=== PATIENT | female | born 2005 | race Caucasian/White ===

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

== ENCOUNTER 2024-01-04 19:01 | Emergency (ER) | payer OTHER, SELFPAY ==
[2024-01-04 19:14] VITALS: BP 115/79; BP 116/68; PULSE 107; PULSE 84; RESP 18; TEMP 36.6; O2SAT 97; O2SAT 99; BMI 28.1
--- NOTE | 2024-01-04 19:31 | ED.GENADULT ---
HPI - General Adult General Chief complaint: Psychiatric Symptoms Stated complaint: behavioral Time Seen by Provider: 01/04/24 19:20 Source: patient and EMS Mode of arrival: EMS Limitations: no limitations History of Present Illness ED Provider: Mounika Guerrier PA-C HPI narrative: Patient is a 18 year old assigned female at with, living in a detention, presenting to the emergency department today after a behavioral issue at her detention. Patient states that she was being threatened by staff of restraint for not performing hygiene tasks. Patient states that she does not have any thoughts of harming herself or others. Patient denies any dizziness, lightheadedness, abdominal pain, nausea, vomiting, fever, chills, blurry vision, double vision, loss of vision, chest pain, difficulty breathing, shortness of breath, back pain, night sweats, pain with urination, increased urinary frequency, increased urinary urgency, blood in her urine or stool, syncope or a near syncopal episode, recent trauma or falls, bowel incontinence, bladder incontinence, or any other complaints at this time. Relieving factors: none Exacerbating factors: none Associated symptoms: denies other symptoms Treatments prior to arrival: none Related Data Home Medications ?Medication ?Instructions ?Recorded ?Confirmed clonidine HCl 0.1 mg tablet 0.1 mg PO BIDWM 11/10/23 01/04/24 clozapine 25 mg tablet 50 mg PO BID 11/10/23 01/04/24 clozapine 50 mg tablet 75 mg PO DAILY 11/10/23 01/04/24 divalproex 125 mg capsule,delayed 125 mg PO QNOON 11/10/23 01/04/24 release sprinkle (Depakote Sprinkles) loratadine 10 mg tablet 10 mg PO DAILY 11/10/23 01/04/24 melatonin 3 mg tablet 3 mg PO BEDTIME 11/10/23 01/04/24 metformin 500 mg tablet 500 mg PO BID 11/10/23 01/04/24 prazosin 2 mg capsule 2 mg PO BEDTIME 11/10/23 01/04/24 sennosides 8.6 mg tablet (senna) 17.2 mg PO BEDTIME 11/10/23 01/04/24 Depakote Sprinkles 250 mg PO BID 01/04/24 01/04/24 lactase 3,000 unit tablet (Lactaid) 9,000 unit PO TIDWMEAL PRN Lactose 01/04/24 01/04/24 Intolerance polyethylene glycol 3350 17 17 g PO BEDTIME 01/04/24 01/04/24 gram/dose oral powder Allergies Allergy/AdvReac Type Severity Reaction Status Date / Time Seasonal Allergies Allergy Sneezing Verified 01/04/24 19:28 Review of Systems Constitutional: Constitutional: Reports no additional constitutional complaints, Denies chills, Denies fever(s) and Denies night sweats Eyes: Eyes: Reports no additional eye complaints, Denies blurry vision, Denies change in vision, Denies diplopia, Denies eye discharge, Denies loss of vision and Denies eye pain ENT: Denies dizziness Cardiovascular: Cardiovascular: Reports no additional cardiovascular complaints, Denies chest pain, Denies lightheadedness, Denies Loss of Consciousness and Denies dyspnea Respiratory: Respiratory: Reports no additional respiratory complaints and Denies dyspnea Gastrointestinal: Gastrointestinal: Reports no additional gastrointestinal complaints, Denies abdominal pain, Denies melena, Denies hematochezia, Denies change in bowel habits and Denies change in stool character Genitourinary: Genitourinary: Denies hematuria, Denies urinary frequency, Denies dysuria, Denies urinary incontinence, Denies urinary hesitancy and Denies urinary urgency Musculoskeletal: Musculoskeletal: Reports no additional musculoskeletal complaints, Denies numbness and Denies tingling Neurologic: Denies dizziness, Denies loss of vision, Denies numbness and Denies tingling Psychiatric: Psychiatric: Reports no additional psychiatric complaints Endocrine: Endocrine: Reports no additional endocrine complaints Hematologic/Lymphatic: Hematologic/Lymphatic: Reports no additional hematologic/lymphatic complaints Allergic/Immunologic: Allergic/Immunologic: Reports no additional allergic/immunologic complaints [facility] Past Medical History Attestation statement: The following information was validated with the patient. Source: old records reviewed and nursing notes reviewed Medical History Schizoaffective disorder PTSD (post-traumatic stress disorder) Social History Social History Patient Tobacco Use Status: Never used Tobacco Advance Directives: No Advance Directives Information Provided: No Do you have a plan to hurt others: No Plan Physical Exam ED Vital Signs: Vital Signs - 24 hr 01/04/24 19:14 Temperature 97.8 F Pulse Rate 84 Respiratory Rate 18 Blood Pressure 115/79 Pulse Oximetry 99 Oxygen Delivery Method Room Air BMI result Body Mass Index 28.1 Const General: cooperative, no acute distress, alert and awake Nutritional Appearance: well nourished Orientation/consciousness: patient oriented x3 Limitations: no limitations HENMT Head: Yes normal to inspection and Yes atraumatic Ears: hearing grossly normal bilaterally and external ears normal General nose exam: Normal external nose present, no nasal discharge noted and no epistaxis Face and sinus: Yes normal facial exam, No abrasion and No laceration Mouth: Normal oral and palatal mucosa present, no drooling and no muffled voice Eyes General: appearance normal, both eyes and all related structures Periorbital: periorbital findings normal Eyelids: Yes eyelids normal Conjunctivae: conjunctivae normal Pupils: Equal, round and reactive pupils present EOM: EOMs intact bilaterally Neck Neck: Yes normal visual inspection, Yes full ROM and Yes no lymphadenopathy Chest Chest palpation & inspection: normal inspection of the chest Resp Effort & Inspection: normal respiratory effort and able to speak in complete sentences GI Inspection: Yes normal to inspection Neuro General: patient oriented x3 and moves all extremities Cranial nerves: Yes Equal, round and reactive pupils present Cognition (Neuro): normal cognition Extrem General: Yes normal to inspection, Yes full ROM and Yes capillary refill normal Psych Appearance: grossly normal Mental Status: mental status grossly normal Affect: normal affect Attitude: cooperative Thought process: Normal thought process present Thought content: Normal thought content present Insight: Good insight present (Psych) Medications Administered Generic Name Dose Route Start Last Admin Trade Name Reggie PRN Reason Stop Dose Admin Clonidine HCl 0.1 mg 01/05/24 08:00 01/04/24 22:22 Clonidine Hcl 0.1 Mg Tablet PO 0.1 mg BIDWM [facility] Administration Protocol Divalproex Sodium 125 mg 01/04/24 21:30 01/04/24 22:21 Divalproex Sodium Sprinkles 125 Mg PO Not Given DAILY@1200 [facility] Lactase 1 tab 01/04/24 21:18 01/04/24 22:22 Lactase Tablet PO Not Given TIDWM [facility] Medical Decision Making Medical Decision Making MDM Narrative: Patient is a 18 year old assigned female at with a history of shizoaffective disorder presenting to the emergency department today after a behavioral issue at her detention. Patient's physical exam was unremarkable. I explained my physical exam findings to the patient. I answered all questions asked by the patient. Patient will remain in physician observation until tomorrow morning (01/05/2024) then she will be discharged back to her detention. Differential Diagnosis Differential Diagnoses: The differential diagnosis associated with the presentation includes Behavioral outburst Admission/Observation Consideration of admission/observation: Escalation of care including admission/observation considered Patient would have been admitted to the hospital had her clinical presentation warranted hospital admission. Independent Historian Clinical information obtained from an independent historian. History obtained from or confirmed by: EMS (EMS provided additional history and confirmed the history provided by the patient.) and Other (penitentiary staff provided additional history. ) Discharge Plan Discharge Clinical Impression: Behavioral problem Patient Disposition: Still a Patient Prescriptions: No Action metformin 500 mg tablet 500 mg PO BID sennosides [senna] 8.6 mg tablet 17.2 mg PO BEDTIME clonidine HCl 0.1 mg tablet 0.1 mg PO BIDWM melatonin 3 mg tablet 3 mg PO BEDTIME clozapine 25 mg tablet 50 mg PO BID Rx Instructions: @1200, 2000 divalproex [Depakote Sprinkles] 125 mg capsule, delayed rel sprinkle 125 mg PO QNOON loratadine 10 mg tablet 10 mg PO DAILY prazosin 2 mg capsule 2 mg PO BEDTIME clozapine 50 mg tablet 75 mg PO DAILY Depakote Sprinkles 250 mg PO BID polyethylene glycol 3350 17 gram/dose powder 17 g PO BEDTIME lactase [Lactaid] 3,000 unit Tablet 9,000 unit PO TIDWMEAL PRN (Reason: Lactose Intolerance) Print Language: Algerian
--- NOTE | 2024-01-04 20:56 | PC.NURSE ---
mom carlos croninnard cslled asked mother to call back d/t t/w needing to talk to staff and clarify details regarding patient presentation.
[2024-01-04] MEDS: cloNIDine HCL 0.1 MG TABLET PO (22:22)
--- NOTE | 2024-01-04 23:10 | HE.PHANOTE ---
[facility] Ann [phone]. She said pt takes 75 mg at 8am, 50 mg at noon and at night. She cannot confirm the last dose because patient was with her mom (Yoly [phone]) since friday01/02/24.
[2024-01-04] MEDS: Prazosin HCL 1 MG CAPSULE 2 MG PO (23:33)
[2024-01-04] MEDS: polyethylene glycoL 3350 17 GM POWD.PACK PO (23:33)
[2024-01-04] MEDS: Divalproex Sodium Sprinkles 125 MG CAP.DR.SPR 250 MG PO (23:34)
[2024-01-04] MEDS: Melatonin 3 MG TABLET PO (23:34)
[2024-01-04 23:41] VITALS: BP 109/70; PULSE 90; RESP 17; TEMP 36.4; O2SAT 99
--- NOTE | 2024-01-05 00:04 | PC.NURSE ---
late entry, staff from [facility] seated with patient, most medications given tardy awating pharmacy approval, clozaril was held d/t lack of labwork.
--- NOTE | 2024-01-05 05:26 | PC.NURSE ---
Pt sleeping at the bedside. No apparent distress noted. Breaths are even regular and unlabored with equal chest rises. Monitoring is ongoing.
[2024-01-05 08:12] VITALS: BP 107/68; PULSE 81; RESP 18; TEMP 36.1; O2SAT 98
[2024-01-05 08:42] VITALS: BP 107/68
[2024-01-05] MEDS: metFORMIN HCl 500 MG TABLET PO (08:42)
[2024-01-05] MEDS: Divalproex Sodium Sprinkles 125 MG CAP.DR.SPR 250 MG PO (08:42)
[2024-01-05] MEDS: cloNIDine HCL 0.1 MG TABLET PO (08:42)
[2024-01-05] MEDS: Lactase TABLET 1 TAB PO (08:43)
[2024-01-05] MEDS: Loratadine 10 MG TABLET PO (08:43)
[2024-01-05] MEDS: cloZAPine 25 MG TABLET 75 MG PO (09:14)
[2024-01-05] MEDS: cloZAPine 25 MG TABLET 50 MG PO (09:15)
[2024-01-05 09:41] VITALS: BP 107/68; PULSE 81; RESP 18; TEMP 36.1; O2SAT 98
--- NOTE | 2024-01-05 09:42 | PC.NURSE ---
pt denies si/hi, caqlm and cooperative, pt and [facility] staff agreeable with return to [facility]
== END 2024-01-05 09:42 | disposition home or self-care (01) ==
PROVIDERS: Emergency Provider Emergency Medicine Emergency Medical Services
DX: F91.9 Conduct disorder, unspecified (principal); F20.9 Schizophrenia, unspecified; Z79.899 Other long term (current) drug therapy
CPT/HCPCS: 99284

== ENCOUNTER 2024-01-20 08:21 | Emergency (ER) | payer OTHER, SELFPAY ==
[2024-01-20] VITALS (8 sets, daily range): BP systolic 117–130; BP diastolic 57–80; PULSE 90–115; RESP 17–19; TEMP 36.4–37.1; O2SAT 95–97; BMI 33.6
--- NOTE | 2024-01-20 08:36 | ECG_ITS ---
Test Reason : syncope Blood Pressure : / mmHG Vent. Rate : 109 BPM Atrial Rate : 109 BPM P-R Int : 118 ms QRS Dur : 080 ms QT Int : 322 ms P-R-T Axes : 070 105 007 degrees QTc Int : 433 ms Sinus tachycardia Rightward axis T wave abnormality, consider inferior ischemia Abnormal ECG When compared with ECG of 21-NOV-2023 12:25, T wave inversion now evident in Inferior leads Nonspecific T wave abnormality now evident in Anterolateral leads Referred By: Generic ED Physician Electronically Signed By:ERLINDA KENNEDY
--- NOTE | 2024-01-20 09:01 | ED_ITS ---
HPI - General Adult General Chief complaint: Syncope Stated complaint: Abd pain, sore throat, headache Time Seen by Provider: 01/20/24 08:49 Source: patient and RN notes reviewed Mode of arrival: ambulatory Limitations: no limitations History of Present Illness ED Provider: Cristin Galvan PA-C HPI narrative: This is a 18 year old female who presents to the emergency department with complaints of sore throat. She also endorses that she has diarrhea. Patient also states that she becomes dizzy when she stands. She states that she has not been drinking as may fluids as she has had a sore throat. She has been taking Motrin which provides her with some relief. She is on control, she denies any chest pain, shortness breath, abdominal pain, nausea, vomiting or diarrhea. Last menstrual period was last week. No sick contacts. No other complaints or concerns at this time. MD complaint: Sore throat Onset (ago): day(s) Radiation: non-radiation Relieving factors: none Exacerbating factors: none Associated symptoms: denies other symptoms Treatments prior to arrival: none Related Data Home Medications ?Medication ?Instructions ?Recorded ?Confirmed clonidine HCl 0.1 mg tablet 0.1 mg PO BIDWM 11/10/23 01/04/24 clozapine 25 mg tablet 50 mg PO BID 11/10/23 01/04/24 clozapine 50 mg tablet 75 mg PO DAILY 11/10/23 01/04/24 divalproex 125 mg capsule,delayed 125 mg PO QNOON 11/10/23 01/04/24 release sprinkle (Depakote Sprinkles) loratadine 10 mg tablet 10 mg PO DAILY 11/10/23 01/04/24 melatonin 3 mg tablet 3 mg PO BEDTIME 11/10/23 01/04/24 metformin 500 mg tablet 500 mg PO BID 11/10/23 01/04/24 prazosin 2 mg capsule 2 mg PO BEDTIME 11/10/23 01/04/24 sennosides 8.6 mg tablet (senna) 17.2 mg PO BEDTIME 11/10/23 01/04/24 Depakote Sprinkles 250 mg PO BID 01/04/24 01/04/24 lactase 3,000 unit tablet (Lactaid) 9,000 unit PO TIDWMEAL PRN Lactose 08/04/24 08/04/24 Intolerance polyethylene glycol 3350 17 17 g PO BEDTIME 01/04/24 01/04/24 gram/dose oral powder Allergies Allergy/AdvReac Type Severity Reaction Status Date / Time lactose Allergy Gastrointestinal Verified 01/20/24 08:31 Upset Seasonal Allergies Allergy Sneezing Verified 01/20/24 08:31 Review of Systems 2 Review of Systems: Yes all other systems are reviewed and are negative Constitutional: Constitutional: Reports as per [facility] Past Medical History Medical History Schizoaffective disorder PTSD (post-traumatic stress disorder) Social History Social History Patient Tobacco Use Status: Never used Tobacco Smoked in Last 30 Days: No Use of substances other than those prescribed or required for medical reasons: No Advance Directives: No Advance Directives Information Provided: Yes Patient : No Physical Exam ED Vital Signs: Vital Signs - 24 hr 01/20/24 08:29 01/20/24 08:55 01/20/24 10:12 Temperature 98.3 F 98.8 F Pulse Rate 115 H 99 90 Respiratory Rate 18 18 17 Blood Pressure 130/67 117/76 118/69 Pulse Oximetry 95 97 95 Oxygen Delivery Method Room Air Room Air Room Air 01/20/24 11:47 01/20/24 11:48 01/20/24 11:49 Temperature Pulse Rate 90 97 104 H Respiratory Rate Blood Pressure 120/57 L 125/80 127/71 Pulse Oximetry Oxygen Delivery Method 01/20/24 12:08 01/20/24 14:18 Temperature 97.6 F 97.6 F Pulse Rate 90 90 Respiratory Rate 19 19 Blood Pressure 127/71 127/71 Pulse Oximetry 96 96 Oxygen Delivery Method Room Air Room Air BMI result Body Mass Index 33.6 Const General: cooperative, comfortable and no acute distress Orientation/consciousness: patient oriented x3 Limitations: no limitations HENMT Other: Oropharynx is widely patent, no tonsillar hypertrophy or exudates. Uvula is midline Head: Yes normal to inspection, Yes normocephalic and Yes atraumatic Ears: hearing grossly normal bilaterally and TM's normal bilaterally General nose exam: Normal external nose present Face and sinus: Yes normal facial exam Mouth: Normal oral and palatal mucosa present, oropharynx normal and moist mucous membranes Throat: Yes posterior oropharynx normal Eyes General: appearance normal, both eyes and all related structures Eyelids: Yes eyelids normal Conjunctivae: conjunctivae normal Sclerae: sclerae normal Pupils: Equal, round and reactive pupils present EOM: EOMs intact bilaterally Neck Neck: Yes normal visual inspection, Yes full ROM and Yes no lymphadenopathy Lymphatic: no lymphadenopathy noted Chest Chest palpation & inspection: normal inspection of the chest Resp Effort & Inspection: normal respiratory effort and able to speak in complete sentences Auscultation: clear to auscultation bilaterally, no crackles, no rales, no rhonchi and no wheezes Cardio Rate: regular rate Rhythm: regular rhythm Heart sounds: S1 normal heart sound present and S2 normal heart sound present GI Inspection: Yes normal to inspection Skin General skin exam: no rashes or lesions noted Trauma: no lacerations or abrasions Wounds: no wounds Neuro General: patient oriented x3 and moves all extremities Cranial nerves: Yes Equal, round and reactive pupils present Extrem General: Yes normal to inspection Right upper extremity: normal to inspection Left upper extremity: normal to inspection Right lower extremity: normal to inspection Left lower extremity: normal to inspection Course Reevaluation(s) Reevaluation #1: Patient given 2 L of IV fluids, she is feeling much better, orthostatics were negative. She has eating and drinking without difficulty. Patient eager for discharge. Patient stable for discharge with strict return precautions. manager assisted living requesting clozapine level as she gets this performed every 2 weeks. Advised that she will not have this result back and time. She has had 2- troponins. EKG normal sinus rhythm. Patient stable for discharge Medications Administered Discontinued Medications Generic Name Dose Route Start Last Admin Trade Name Arturq PRN Reason Stop Dose Admin Sodium Chloride 1,000 mls @ 999 mls/hr 01/20/24 09:01 01/20/24 10:35 Ns IV 01/20/24 10:01 Infused .Q1H1M ONE Infusion Sodium Chloride 1,000 mls @ 999 mls/hr 01/20/24 10:30 01/20/24 12:32 Ns IV 01/20/24 11:30 Infused .Q1H1M ONE Infusion Medical Decision Making Medical Decision Making MDM Narrative: This is a 18-year-old female who presents emergency department with complaints of sore throat, headaches, and diarrhea. On arrival, pulse 115. She is speaking in full sentences, under no acute distress, lungs are clear to auscultation bilaterally. Differential diagnoses include electrolyte derangement, strep pharyngitis, URI, COVID, flu, mono. Plan: Labs, IV fluids, viral swabs Differential Diagnosis Differential Diagnoses: The differential diagnosis associated with the presentation includes See above Admission/Observation Consideration of admission/observation: Escalation of care including admission/observation considered Escalation of care including admission/observation considered however given workup today not warranted at this time. Lab Data MDM Lab Attestation statement: I reviewed the patient's lab results. Slight leukopenia at 3.5, chemistry within normal limits, no elevation in troponins x2, slight elevation in lipase, she is not . Urine appears to be contaminated 01/20/24 09:25 01/20/24 09:25 Labs: Lab Results 01/20/24 01/20/24 01/20/24 Range/Units 09:19 09:25 10:40 WBC 3.5 L (4.8-10.8) X10*3/uL RBC 4.31 (4.20-5.50) X10*6/uL Hgb 12.4 (12.0-16.0) g/dl Hct 36.5 L (37.0-47.0) % MCV 84.7 (80.0-98.0) fL MCH 28.8 (27.0-33.0) pg MCHC 34.0 (31.0-35.0) g/dl RDW 12.6 (11.0-16.0) % Plt Count 155 L D (160-400) X10*3/uL MPV 11.4 (9.4-12.3) fL Immature Gran % (Auto) 0.3 (0.0-0.4) % Neut % (Auto) 53.8 (45-73) % Lymph % (Auto) 38.2 (20-40) % Russell % (Auto) 7.4 (2-11) % Eos % (Auto) 0.0 (0-4) % Baso % (Auto) 0.3 (0-2) % Lymph # (Auto) 1.3 (1.2-4.9) X10*3/uL Russell # (Auto) 0.3 (0.1-1.2) X10*3/uL Eos # (Auto) 0.0 (0.0-0.4) X10*3/uL Baso # (Auto) 0.0 (0.0-0.2) X10*3/uL Abs Immat Gran (auto) 0.01 (0.00-0.03) X10*3/uL Absolute Neuts (auto) 1.9 L (2.0-8.3) x10*3/uL Absolute Nucleated RBC 0.000 (0.0-0.012) X10*3/uL Nucleated RBC % (auto) 0.0 (0.0-0.2) /100WBC Smear Tech's Comments VERIFIED D-Dimer High Sensitivty < 150 NG/ML Sodium 142 (135-145) mmol/L Potassium 3.8 (3.3-5.1) mmol/L Chloride 107 (96-108) mmol/L Carbon Dioxide 21 L (22-29) mmol/L Anion Gap 18 (12-20) BUN 12 (9-16) mg/dL Creatinine 0.74 (0.5-1.4) mg/dL Estim Creat Clear Calc 131.9 Estimated GFR > 60 Random Glucose 69 (60-115) mg/dL Calcium 8.7 D (8.4-10.2) mg/dL Magnesium 1.8 (1.6-2.6) mg/dL Total Bilirubin 0.3 (0.0-1.0) mg/dL Direct Bilirubin 0.2 (0.0-0.5) mg/dL AST 18 (5-31) U/L ALT 9 (0-31) U/L Alkaline Phosphatase 50 (39-117) U/L Troponin I High Sens < 2.7 (<3.5-17.0) ng/L Total Protein 7.0 (6.5-8.0) g/dL Albumin 3.9 (3.5-5.0) g/dL Lipase 90 H (8-78) U/L Beta HCG, Quant < 2 mIU/mL Urine Color Dark Yellow Urine Appearance Cloudy Urine pH 5.5 (5.0-9.0) Ur Specific [place] >= 1.030 H (1.005-1.025) Urine Protein Trace (Neg-Trace) mg/dL Urine Glucose (UA) Negative (Negative) mg/dL Urine Ketones >=160 (Negative) mg/dL Urine Blood Negative (Negative) Urine Nitrite Negative (Negative) Ur Leukocyte Esterase Small (1+) H (Negative) Urine RBC 0-2 (0-2) /HPF Urine WBC 11-20 H (0-5) /HPF Ur Squamous Epith Cells 11-20 (0-2) /HPF Urine Bacteria 2+ (None Seen) Hyaline Casts 0-2 (0-2) /LPF Monoscreen Negative (Negative) Influenza Type A (PCR) NEGATIVE (Negative) Influenza Type B (PCR) NEGATIVE (Negative) RSV RNA Qual (PCR) NEGATIVE (Negative) SARS-CoV-2 RNA (RT-PCR) NEGATIVE (Negative) S. pyogenes GrpA MARIALUISA Negative (Negative) 01/20/24 Range/Units 13:05 WBC (4.8-10.8) X10*3/uL RBC (4.20-5.50) X10*6/uL Hgb (12.0-16.0) g/dl Hct (37.0-47.0) % MCV (80.0-98.0) fL MCH (27.0-33.0) pg MCHC (31.0-35.0) g/dl RDW (11.0-16.0) % Plt Count (160-400) X10*3/uL MPV (9.4-12.3) fL Immature Gran % (Auto) (0.0-0.4) % Neut % (Auto) (45-73) % Lymph % (Auto) (20-40) % Russell % (Auto) (2-11) % Eos % (Auto) (0-4) % Baso % (Auto) (0-2) % Lymph # (Auto) (1.2-4.9) X10*3/uL Russell # (Auto) (0.1-1.2) X10*3/uL Eos # (Auto) (0.0-0.4) X10*3/uL Baso # (Auto) (0.0-0.2) X10*3/uL Abs Immat Gran (auto) (0.00-0.03) X10*3/uL Absolute Neuts (auto) (2.0-8.3) x10*3/uL Absolute Nucleated RBC (0.0-0.012) X10*3/uL Nucleated RBC % (auto) (0.0-0.2) /100WBC Smear Tech's Comments D-Dimer High Sensitivty NG/ML Sodium (135-145) mmol/L Potassium (3.3-5.1) mmol/L Chloride (96-108) mmol/L Carbon Dioxide (22-29) mmol/L Anion Gap (12-20) BUN (9-16) mg/dL Creatinine (0.5-1.4) mg/dL Estim Creat Clear Calc Estimated GFR Random Glucose (60-115) mg/dL Calcium (8.4-10.2) mg/dL Magnesium (1.6-2.6) mg/dL Total Bilirubin (0.0-1.0) mg/dL Direct Bilirubin (0.0-0.5) mg/dL AST (5-31) U/L ALT (0-31) U/L Alkaline Phosphatase (39-117) U/L Troponin I High Sens < 2.7 (<3.5-17.0) ng/L Total Protein (6.5-8.0) g/dL Albumin (3.5-5.0) g/dL Lipase (8-78) U/L Beta HCG, Quant mIU/mL Urine Color Urine Appearance Urine pH (5.0-9.0) Ur Specific [place] (1.005-1.025) Urine Protein (Neg-Trace) mg/dL Urine Glucose (UA) (Negative) mg/dL Urine Ketones (Negative) mg/dL Urine Blood (Negative) Urine Nitrite (Negative) Ur Leukocyte Esterase (Negative) Urine RBC (0-2) /HPF Urine WBC (0-5) /HPF Ur Squamous Epith Cells (0-2) /HPF Urine Bacteria (None Seen) Hyaline Casts (0-2) /LPF Monoscreen (Negative) Influenza Type A (PCR) (Negative) Influenza Type B (PCR) (Negative) RSV RNA Qual (PCR) (Negative) SARS-CoV-2 RNA (RT-PCR) (Negative) S. pyogenes GrpA MARIALUISA (Negative) Discharge Plan Discharge Clinical Impression: URI (upper respiratory infection), Pharyngitis Patient Disposition: Home, Self-Care Instructions: Pharyngitis (ED), Upper Respiratory Infection (ED) Additional Instructions: You were seen in the emergency department due to a sore throat and headaches. You likely have a virus which is causing him to have your symptoms. Your Clozaril level was sent out, we will not have this back today. Your workup today was reassuring. Please drink plenty of fluids and get plenty of rest. If any new or worsening symptoms occur including but not limited to chest pain, shortness of breath, dizziness, please return for re-evaluation. Prescriptions: No Action metformin 500 mg tablet 500 mg PO BID sennosides [senna] 8.6 mg tablet 17.2 mg PO BEDTIME clonidine HCl 0.1 mg tablet 0.1 mg PO BIDWM melatonin 3 mg tablet 3 mg PO BEDTIME clozapine 25 mg tablet 50 mg PO BID Rx Instructions: @1200, 2000 divalproex [Depakote Sprinkles] 125 mg capsule, delayed rel sprinkle 125 mg PO QNOON loratadine 10 mg tablet 10 mg PO DAILY prazosin 2 mg capsule 2 mg PO BEDTIME clozapine 50 mg tablet 75 mg PO DAILY Depakote Sprinkles 250 mg PO BID polyethylene glycol 3350 17 gram/dose powder 17 g PO BEDTIME lactase [Lactaid] 3,000 unit Tablet 9,000 unit PO TIDWMEAL PRN (Reason: Lactose Intolerance) Interventions: ED Discharge Assessment Last Done: 01/20/24 14:18 Discharge Date/Time: 01/20/24 14:19 Print Language: Serbian
[2024-01-20] MEDS: 0.9 % Sodium Chloride 1,000 ML 999 ML IV ×2 (09:26→10:39)
[2024-01-20 09:33] LABS: Basophils Percent Auto 0.3 % (0-2); Hematocrit 36.5 % (37.0-47.0); Hemoglobin 12.4 g/dl (12.0-16.0); Imm Gran Abs Auto 0.01 X10*3/uL (0.00-0.03); Imm Gran Pct Auto 0.3 % (0.0-0.4); Lymphocytes Absolute Auto 1.3 X10*3/uL (1.2-4.9); Lymphocytes Percent Auto 38.2 % (20-40); MANUAL DIFF FLAG SCAN; Mean Corpuscular Hemoglobin 28.8 pg (27.0-33.0); Mean Corpuscular Volume 84.7 fL (80.0-98.0); Mean Platelet Volume 11.4 fL (9.4-12.3); Monocytes Absolute Auto 0.3 X10*3/uL (0.1-1.2); Monocytes Percent Auto 7.4 % (2-11); Neutrophils Absolute Auto 1.9 x10*3/uL (2.0-8.3); Neutrophils Percent Auto 53.8 % (45-73); Platelet Count 155 X10*3/uL (160-400); Red Blood Count 4.31 X10*6/uL (4.20-5.50); Red Cell Distribution Width 12.6 % (11.0-16.0); SCAN SMEAR FLAG 1; White Blood Count 3.5 X10*3/uL (4.8-10.8)
--- NOTE | 2024-01-20 09:40 | PC.NURSE ---
Pt presents to ED from [facility], reports S/S of sore throat, cough, SOB on exertion, general malaise and near syncope X2 yesterday. Reports symptoms have been ongoing since Friday, worsening. Alert and oriented, breathing even and unlabored at rest, skin pale and dry. VSS. NSR on bedside cardiac monitor technician.
[2024-01-20 09:42] LABS: D Dimer High Sensitivity < 150 NG/ML
[2024-01-20 09:49] LABS: IDNOW Serial# 08D9AD1C; Strep A Nucleic Acid Negative (Negative)
[2024-01-20 09:52] LABS: SLIDE REVIEW VERIFIED
[2024-01-20 09:57] LABS: Alanine Aminotransferase 9 U/L (0-31); Albumin Level 3.9 g/dL (3.5-5.0); Alkaline Phosphatase 50 U/L (39-117); Anion Gap 18 (12-20); Aspartate Amino Transferase 18 U/L (5-31); Bilirubin Direct 0.2 mg/dL (0.0-0.5); Bilirubin Total 0.3 mg/dL (0.0-1.0); Blood Urea Nitrogen 12 mg/dL (9-16); Calcium 8.7 mg/dL (8.4-10.2); Carbon Dioxide 21 mmol/L (22-29); Chloride 107 mmol/L (96-108); Creatinine Clr Calc Pharmacy 131.9; Estimated Glomerular Filt Rate > 60; Glucose Random 69 mg/dL (60-115); Lipase 90 U/L (8-78); Magnesium 1.8 mg/dL (1.6-2.6); Potassium 3.8 mmol/L (3.3-5.1); Sodium 142 mmol/L (135-145)
[2024-01-20 10:09] LABS: HCG Quantitative < 2 mIU/mL
[2024-01-20 10:10] LABS: Troponin-I High Sensitivity < 2.7 ng/L (<3.5-17.0)
[2024-01-20 10:30] LABS: Influenza A PCR NEGATIVE (Negative); Influenza B PCR NEGATIVE (Negative); Resp Syncy Virus RNA Qual PCR NEGATIVE (Negative); SARS COV2 PCR INHOUSE NEGATIVE (Negative)
[2024-01-20 10:44] LABS: Monotest Negative (Negative)
[2024-01-20 10:45] LABS: Appearance Urine Cloudy; Color Urine Dark Yellow; Glucose Urine UA Negative (Negative); Leukocyte Esterase Urine Small (1+) (Negative); Nitrite Urine Negative (Negative); PH 5.5 (5.0-9.0); Specific Gravity - Urine >= 1.030 (1.005-1.025); UMIC TRIGGER UACC YES; Urine Blood Negative (Negative); Urine Ketones >=160 mg/dL (Negative); Urine Protein Trace mg/dL (Neg-Trace)
[2024-01-20 10:48] LABS: Bacteria Urine 2+ (None Seen); Hyaline Casts Urine 0-2 /LPF (0-2); RBC Urine 0-2 /HPF (0-2); UACC Culture Trigger YES
--- NOTE | 2024-01-20 11:12 | MHC.EDTECH ---
This tech responded to call edwar. Patient asking if she could have ice cream. Per Cristin mcdaniel for icecream. Provided patient with two chocolate ice creams per her request. All current needs met.
--- NOTE | 2024-01-20 12:48 | ECG_ITS ---
Test Reason : REPEAT Blood Pressure : / mmHG Vent. Rate : 099 BPM Atrial Rate : 099 BPM P-R Int : 134 ms QRS Dur : 078 ms QT Int : 342 ms P-R-T Axes : 052 093 042 degrees QTc Int : 438 ms Normal sinus rhythm with sinus arrhythmia Rightward axis Borderline ECG When compared with ECG of 20-JAN-2024 08:34, Nonspecific T wave abnormality has replaced inverted T waves in Inferior leads Nonspecific T wave abnormality no longer evident in Lateral leads Referred By: Cristin Galvan Electronically Signed By:ERLINDA KENNEDY
[2024-01-20 13:39] LABS: Troponin-I High Sensitivity < 2.7 ng/L (<3.5-17.0)
[2024-01-25 09:39] LABS: Clozapine (Clozaril) 410 mcg/L; Norclozapine 139 mcg/L (25-400)
== END 2024-01-20 14:19 | disposition home or self-care (01) ==
PROVIDERS: Physician Assistant Medical; Emergency Provider Emergency Medicine
DX: J06.9 Acute upper respiratory infection, unspecified (principal); J02.9 Acute pharyngitis, unspecified; R11.2 Nausea with vomiting, unspecified; R42 Dizziness and giddiness; I49.8 Other specified cardiac arrhythmias; R00.0 Tachycardia, unspecified; Z03.818 Encounter for observation for suspected exposure to other biological agents ruled out; Z79.899 Other long term (current) drug therapy
CPT/HCPCS: 0241U; 36415; 80048; 80076; 80159; 81001; 83690; 83735; 84484; 84702; 85025; 85379; 86308; 87086; 87651; 93005; 96360; 96361; 99285

== ENCOUNTER 2024-02-20 15:01 | Outpatient (REF) | payer OTHER, SELFPAY ==
[2024-02-20 15:15] LABS: MANUAL DIFF FLAG NO
[2024-02-20 15:40] LABS: Basophils Percent Auto 0.3 % (0-2); Eosinophils Percent Auto 0.1 % (0-4); Hematocrit 34.2 % (37.0-47.0); Hemoglobin 11.4 g/dl (12.0-16.0); Imm Gran Abs Auto 0.02 X10*3/uL (0.00-0.03); Imm Gran Pct Auto 0.3 % (0.0-0.4); Lymphocytes Absolute Auto 3.5 X10*3/uL (1.2-4.9); Lymphocytes Percent Auto 47.3 % (20-40); Mean Corpuscular HGB Conc 33.3 g/dl (31.0-35.0); Mean Platelet Volume 10.8 fL (9.4-12.3); Monocytes Absolute Auto 0.4 X10*3/uL (0.1-1.2); Monocytes Percent Auto 5.9 % (2-11); Neutrophils Absolute Auto 3.4 x10*3/uL (2.0-8.3); Neutrophils Percent Auto 46.1 % (45-73); Platelet Count 293 X10*3/uL (160-400); Red Blood Count 4.07 X10*6/uL (4.20-5.50); Red Cell Distribution Width 13.2 % (11.0-16.0); White Blood Count 7.3 X10*3/uL (4.8-10.8)
[2024-02-20 16:05] LABS: Valproate 40.7 mcg/mL (50.0-100.0)
[2024-02-25 03:13] LABS: Clozapine (Clozaril) 435 mcg/L; Norclozapine 153 mcg/L (25-400)
== END 2024-02-20 15:02 | disposition home or self-care (01) ==
LOC: HO.LABR 15:01
PROVIDERS: Visit Provider Psychiatry & Neurology Psychiatry
DX: Z79.899 Other long term (current) drug therapy (principal)
CPT/HCPCS: 36415; 80159; 80164; 85025

== ENCOUNTER 2024-03-25 11:50 | Outpatient (REF) | payer OTHER, SELFPAY ==
[2024-03-25 12:12] LABS: MANUAL DIFF FLAG NO
[2024-03-25 13:01] LABS: Basophils Percent Auto 0.3 % (0-2); Hematocrit 33.4 % (37.0-47.0); Hemoglobin 11.3 g/dl (12.0-16.0); Imm Gran Abs Auto 0.03 X10*3/uL (0.00-0.03); Imm Gran Pct Auto 0.3 % (0.0-0.4); Lymphocytes Absolute Auto 3.2 X10*3/uL (1.2-4.9); Lymphocytes Percent Auto 36.5 % (20-40); Mean Corpuscular HGB Conc 33.8 g/dl (31.0-35.0); Mean Corpuscular Hemoglobin 28.4 pg (27.0-33.0); Mean Corpuscular Volume 83.9 fL (80.0-98.0); Mean Platelet Volume 11.2 fL (9.4-12.3); Monocytes Absolute Auto 0.7 X10*3/uL (0.1-1.2); Monocytes Percent Auto 7.6 % (2-11); Neutrophils Absolute Auto 4.9 x10*3/uL (2.0-8.3); Neutrophils Percent Auto 55.3 % (45-73); Platelet Count 310 X10*3/uL (160-400); Red Blood Count 3.98 X10*6/uL (4.20-5.50); Red Cell Distribution Width 13.4 % (11.0-16.0); White Blood Count 8.8 X10*3/uL (4.8-10.8)
[2024-03-25 13:26] LABS: Valproate 36.2 mcg/mL (50.0-100.0)
[2024-03-29 06:03] LABS: Clozapine (Clozaril) 456 mcg/L; Norclozapine 151 mcg/L (25-400)
== END 2024-03-25 11:51 | disposition home or self-care (01) ==
LOC: HO.LAB 11:50
PROVIDERS: Visit Provider Psychiatry & Neurology Psychiatry
DX: Z79.899 Other long term (current) drug therapy (principal)
CPT/HCPCS: 36415; 80159; 80164; 85025

== ENCOUNTER 2024-04-22 10:24 | Outpatient (REF) | payer OTHER, SELFPAY ==
[2024-04-22 10:37] LABS: MANUAL DIFF FLAG NO
[2024-04-22 10:41] LABS: Basophils Percent Auto 0.3 % (0-2); Eosinophils Percent Auto 0.1 % (0-4); Hematocrit 33.2 % (37.0-47.0); Hemoglobin 11.4 g/dl (12.0-16.0); Imm Gran Abs Auto 0.03 X10*3/uL (0.00-0.03); Imm Gran Pct Auto 0.3 % (0.0-0.4); Lymphocytes Absolute Auto 2.9 X10*3/uL (1.2-4.9); Lymphocytes Percent Auto 32.2 % (20-40); Mean Corpuscular HGB Conc 34.3 g/dl (31.0-35.0); Mean Corpuscular Hemoglobin 28.3 pg (27.0-33.0); Mean Corpuscular Volume 82.4 fL (80.0-98.0); Mean Platelet Volume 10.6 fL (9.4-12.3); Monocytes Absolute Auto 0.7 X10*3/uL (0.1-1.2); Monocytes Percent Auto 7.4 % (2-11); Neutrophils Absolute Auto 5.4 x10*3/uL (2.0-8.3); Neutrophils Percent Auto 59.7 % (45-73); Platelet Count 281 X10*3/uL (160-400); Red Blood Count 4.03 X10*6/uL (4.20-5.50); Red Cell Distribution Width 13.3 % (11.0-16.0); White Blood Count 9.1 X10*3/uL (4.8-10.8)
[2024-04-22 11:34] LABS: Valproate 47.4 mcg/mL (50.0-100.0)
[2024-04-27 04:23] LABS: Clozapine (Clozaril) 481 mcg/L; Norclozapine 124 mcg/L (25-400)
== END 2024-04-22 10:25 | disposition home or self-care (01) ==
LOC: HO.LABR 10:24
PROVIDERS: PCP Psychiatry & Neurology Psychiatry; Visit Provider Psychiatry & Neurology Psychiatry
DX: Z51.81 Encounter for therapeutic drug level monitoring (principal); Z79.899 Other long term (current) drug therapy
CPT/HCPCS: 36415; 80159; 80164; 85025

== ENCOUNTER 2024-05-20 08:37 | Outpatient (REF) | payer OTHER, SELFPAY ==
[2024-05-20 08:53] LABS: MANUAL DIFF FLAG NO
[2024-05-20 09:51] LABS: Basophils Percent Auto 0.3 % (0-2); Hematocrit 35.6 % (37.0-47.0); Hemoglobin 11.9 g/dl (12.0-16.0); Imm Gran Abs Auto 0.02 X10*3/uL (0.00-0.03); Imm Gran Pct Auto 0.3 % (0.0-0.4); Lymphocytes Absolute Auto 2.6 X10*3/uL (1.2-4.9); Lymphocytes Percent Auto 39.6 % (20-40); Mean Corpuscular HGB Conc 33.4 g/dl (31.0-35.0); Mean Corpuscular Hemoglobin 27.9 pg (27.0-33.0); Mean Corpuscular Volume 83.6 fL (80.0-98.0); Mean Platelet Volume 11.1 fL (9.4-12.3); Monocytes Absolute Auto 0.5 X10*3/uL (0.1-1.2); Monocytes Percent Auto 7.9 % (2-11); Neutrophils Absolute Auto 3.5 x10*3/uL (2.0-8.3); Neutrophils Percent Auto 51.9 % (45-73); Platelet Count 298 X10*3/uL (160-400); Red Blood Count 4.26 X10*6/uL (4.20-5.50); Red Cell Distribution Width 13.2 % (11.0-16.0); White Blood Count 6.7 X10*3/uL (4.8-10.8)
== END 2024-05-20 08:38 | disposition home or self-care (01) ==
LOC: HO.LABR 08:37
PROVIDERS: Visit Provider Psychiatry & Neurology Psychiatry
DX: Z79.899 Other long term (current) drug therapy (principal)
CPT/HCPCS: 36415; 85025

== ENCOUNTER 2024-06-20 17:26 | Emergency (ER) | payer OTHER, SELFPAY ==
[2024-06-20 17:37] VITALS: BP 134/80; PULSE 102
[2024-06-20 18:06] VITALS: BP 126/76; PULSE 100; RESP 16; TEMP 36.7; O2SAT 98
--- NOTE | 2024-06-20 18:45 | PC.NURSE ---
brown[employer] program coordinator Jessica called - [phone] states she can return to intermediate at any point.
--- NOTE | 2024-06-20 18:59 | ED_ITS ---
HPI - Psych General Chief Complaint: Psychiatric Symptoms Stated Complaint: SI, HI Time Seen by Provider: 06/20/24 18:03 Source: patient Mode of arrival: ambulatory History of Present Illness ED Provider: HPI Narrative: Patient's history of depression came from group on as she had an argument with the staff felt overwhelmed started scratching her left forearm felt suicidal wanted her own space on arrival patient denied any SI feels relaxed Related Data Home Medications ?Medication ?Instructions ?Recorded ?Confirmed clonidine HCl 0.1 mg tablet 0.1 mg PO BIDWM 11/10/23 06/20/24 clozapine 25 mg tablet 50 mg PO DAILY 11/10/23 06/20/24 clozapine 50 mg tablet 25 mg PO DAILY@1700 11/10/23 06/20/24 melatonin 3 mg tablet 3 mg PO BEDTIME 11/10/23 06/20/24 metformin 500 mg tablet 500 mg PO BID 11/10/23 06/20/24 prazosin 2 mg capsule 2 mg PO BEDTIME 11/10/23 06/20/24 sennosides 8.6 mg tablet (senna) 8.6 mg PO BEDTIME 11/10/23 06/20/24 Depakote Sprinkles 250 mg PO BID 01/04/24 06/20/24 lactase 3,000 unit tablet (Lactaid) 9,000 unit PO TIDWMEAL PRN Lactose 01/04/24 06/20/24 Intolerance clozapine 100 mg tablet 100 mg PO BEDTIME 06/20/24 06/20/24 Allergies Allergy/AdvReac Type Severity Reaction Status Date / Time lactose Allergy Gastrointestinal Verified 06/20/24 18:11 Upset Seasonal Allergies Allergy Sneezing Verified 06/20/24 18:11 Review of Systems Review of Systems: Yes all other systems are reviewed and are negative PMF Past Medical History Medical History Schizoaffective disorder PTSD (post-traumatic stress disorder) Social History Social History Patient Tobacco Use Status: Never used Tobacco Advance Directives: No Advance Directives Information Provided: No Do you have a plan to hurt others: No Plan Physical Exam Vital Signs: Vital Signs: Last Vital Signs Temp 98.6 F 06/20/24 22:39 Pulse 79 06/20/24 22:39 Resp 18 06/20/24 22:39 BP 136/76 06/20/24 22:39 Pulse Ox 98 06/20/24 22:39 O2 Del Method Room Air 06/20/24 22:39 BMI result Body Mass Index 30.0 Appearance: Alert. Oriented X3. No acute distress. Eyes: No pallor or icterus ENT: Pharynx normal. Oral Mucosa moist Neck: Normal inspection. Neck supple. CVS: Normal heart rate and rhythm. Pulses normal. Respiratory: No respiratory distress. Equal air entry bilateral, no wheezing/rales/rhonchi Abdomen: Soft and nontender. Bowel sounds are present, no mass palpable, no CVA tenderness Skin: Skin warm and dry. Normal skin color. Normal skin turgor. Extremities: No lower extremity edema. No calf tenderness psych; stable mood denied any SI at this time Neuro: Oriented X 3. No motor deficit. No sensory deficit.No cerebellar signs , cranial nerves II-XII intact Medical Decision Making Medical Decision Making MDM Narrative: Patient is seen by care team t will discharge patient back to [facility] patient is stable Lab Data Labs: Lab Results 06/20/24 Range/Units 19:26 Urine Color Yellow Urine Appearance Clear Urine pH 6.5 (5.0-9.0) Ur Specific [place] >= 1.030 H (1.005-1.025) Urine Protein Negative (Neg-Trace) mg/dL Urine Glucose (UA) Negative (Negative) mg/dL Urine Ketones Trace (Negative) mg/dL Urine Blood Negative (Negative) Urine Nitrite Negative (Negative) Ur Leukocyte Esterase Small (1+) H (Negative) Urine RBC 0-2 (0-2) /HPF Urine WBC 11-20 H (0-5) /HPF Ur Squamous Epith Cells 6-10 (0-2) /HPF Urine Bacteria 1+ (None Seen) Hyaline Casts 0-2 (0-2) /LPF Urine Test NEGATIVE (NEGATIVE) Urine Opiates Screen Not Detected (Not Detect) Ur Buprenorphine Scrn Not Detected (Not Detect) ng/mL Ur Oxycodone Screen Not Detected (Not Detect) ng/mL Urine Methadone Screen Not Detected (Not Detect) ng/mL Urine Fentanyl Screen Not Detected (Not Detect) Ur Barbiturates Screen Not Detected (Not Detect) Ur Phencyclidine Scrn Not Detected (Not Detect) Ur Amphetamines Screen Not Detected (Not Detect) U Benzodiazepines Scrn Not Detected (Not Detect) Urine Cocaine Screen Not Detected (Not Detect) U Marijuana (THC) Screen Not Detected (Not Detect) Discharge Plan Discharge Clinical Impression: PTSD (post-traumatic stress disorder) Patient Disposition: Home, Self-Care Instructions: Post Traumatic Stress Disorder (ED) Additional Instructions: Continue to take your medication follow up with your therapist Prescriptions: No Action metformin 500 mg tablet 500 mg PO BID sennosides [senna] 8.6 mg tablet 8.6 mg PO BEDTIME clonidine HCl 0.1 mg tablet 0.1 mg PO BIDWM melatonin 3 mg tablet 3 mg PO BEDTIME clozapine 25 mg tablet 50 mg PO DAILY prazosin 2 mg capsule 2 mg PO BEDTIME clozapine 50 mg tablet 25 mg PO DAILY@1700 clozapine 100 mg tablet 100 mg PO BEDTIME Depakote Sprinkles 250 mg PO BID lactase [Lactaid] 3,000 unit Tablet 9,000 unit PO TIDWMEAL PRN (Reason: Lactose Intolerance) Interventions: [place]-Suicide Risk Severity Scale Last Done: 06/20/24 18:36 ED Discharge Assessment Last Done: 06/20/24 22:39 Discharge Date/Time: 06/20/24 22:40 Print Language: Khmer
[2024-06-20 19:35] LABS: Appearance Urine Clear; Color Urine Yellow; Glucose Urine UA Negative (Negative); Leukocyte Esterase Urine Small (1+) (Negative); Nitrite Urine Negative (Negative); PH 6.5 (5.0-9.0); Specific Gravity - Urine >= 1.030 (1.005-1.025); UMIC TRIGGER UACC YES; Urine Blood Negative (Negative); Urine Ketones Trace mg/dL (Negative); Urine Protein Negative (Neg-Trace)
[2024-06-20 19:36] LABS: UPreg QC Valid YES; Urine Pregnancy NEGATIVE (NEGATIVE)
[2024-06-20 19:52] LABS: Bacteria Urine 1+ (None Seen); Hyaline Casts Urine 0-2 /LPF (0-2); RBC Urine 0-2 /HPF (0-2); UACC Culture Trigger YES
[2024-06-20 20:12] LABS: Amphetamine Screen Urine Not Detected (Not Detect); Barbiturates, Urine Not Detected (Not Detect); Benzodiazepines Screen Urine Not Detected (Not Detect); Buprenorphine Scr Not Detected (Not Detect); Cannabinoid Screen Urine Not Detected (Not Detect); Cocaine Screen Urine Not Detected (Not Detect); Fentanyl, urine Not Detected (Not Detect); Methadone Screen, Urine Not Detected (Not Detect); Opiate Screen Urine Not Detected (Not Detect); Oxycodone Screen Urine Not Detected (Not Detect); Phencyclidine Screen Urine Not Detected (Not Detect)
--- NOTE | 2024-06-20 20:36 | PC.NURSE ---
patient appears to remain at rest presently respirations are even and unlabored patient appears in no distress.
[2024-06-20 22:39] VITALS: BP 136/76; PULSE 79; RESP 18; TEMP 37; O2SAT 98
== END 2024-06-20 22:40 | disposition home or self-care (01) ==
PROVIDERS: Emergency Provider Internal Medicine; PCP Psychiatry & Neurology Psychiatry
DX: F33.1 Major depressive disorder, recurrent, moderate (principal); F43.10 Post-traumatic stress disorder, unspecified; R45.851 Suicidal ideations; Z51.81 Encounter for therapeutic drug level monitoring; Z79.899 Other long term (current) drug therapy
CPT/HCPCS: 80307; 81001; 81025; 87086; 99284; S9485

== ENCOUNTER 2024-06-23 09:41 | Outpatient (REF) | payer OTHER, SELFPAY ==
[2024-06-23 09:55] LABS: MANUAL DIFF FLAG NO
--- OUTSIDE RECORDS SUMMARY | 2024-06-23 10:24 | XMS_ITS | Continuity of Care Document ---
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 Name Role Phone Jamal SHERMAN, Adalgisa Stock Primary Care Physician [phone] [place] [facility] [place]): [place] 06/02/24 [facility] [address] [place], [place] [address] Encounter Type: Triage Allergies, Adverse Reactions, Alerts No Known Allergies Immunizations Given and Recorded Vaccine Date Status Refusal Reason influenza virus vaccine, inactivated 07/24/23 Give n influenza virus vaccine, inactivated 02/25/22 Dontae rded influenza virus vaccine, inactivated 02/21/21 Dontae rded influenza virus vaccine, inactivated 03/27/17 Dontae rded influenza virus vaccine, inactivated 07/03/16 Dontae rded influenza virus vaccine, inactivated 07/24/15 Dontae rded influenza virus vaccine, inactivated 07/22/14 Dontae rded influenza virus vaccine, inactivated 04/19/13 Dontae rded influenza virus vaccine, inactivated 1 07/02/12 Gi melvi influenza virus vaccine, inactivated 03/23/10 Dontae rded influenza virus vaccine, inactivated 04/04/08 Dontae rded SARS-CoV-2 mRNA ([id number]) vax 06/13/21 Recorded Meningococcal Conjugate Vaccine 02/21/21 Recorded Meningococcal Conjugate Vaccine 07/24/15 Recorded SARS-CoV-2 (COVID-19) mRNA BNT-162b2 vac 07/20/20 Recorded SARS-CoV-2 (COVID-19) mRNA BNT-162b2 vac 06/29/20 Recorded Human Papillomavirus Vaccine 01/06/18 Recorded Human Papillomavirus Vaccine 08/09/16 Recorded tetanus/diphtheria/pertussis, acel(Tdap) 07/24/15 Recorded Measles/Mumps/Rubella Virus Vaccine 07/22/15 Recor ded Measles/Mumps/Rubella Virus Vaccine 08/15/09 Recor ded Hepatitis A Pediatric Vaccine 07/22/14 Recorded Hepatitis A Pediatric Vaccine 04/19/13 Recorded diphtheria/tetanus/pertussis, acel(DTaP) 08/15/09 Recorded diphtheria/tetanus/pertussis, acel(DTaP) 07/22/05 Recorded diphtheria/tetanus/pertussis, acel(DTaP) 04 Recorded diphtheria/tetanus/pertussis, acel(DTaP) 04 Recorded diphtheria/tetanus/pertussis, acel(DTaP) 04 Recorded Poliovirus Vaccine, Inactivated 07/26/08 Recorded Poliovirus Vaccine, Inactivated 01/17/05 Recorded Poliovirus Vaccine, Inactivated 04 Recorded Poliovirus Vaccine, Inactivated 04 Recorded haemophilus b conjugate (PRP-T) vaccine 07/22/05 R ecorded haemophilus b conjugate (PRP-T) vaccine 04 R ecorded haemophilus b conjugate (PRP-T) vaccine 04 R ecorded haemophilus b conjugate (PRP-T) vaccine 04 R ecorded hepatitis B pediatric vaccine 01/17/05 Recorded hepatitis B pediatric vaccine 04 Recorded hepatitis B pediatric vaccine 04 Recorded 1Early/Late Reason: New Med Order Medications Benefiber oral powder for reconstitution = 2 Gm, By Mouth, 2 times a day, PRN as needed for constipation, Mix with 8oz of water or juice, # 350 Gm, 1 Refills, Maintenance, 07/31/23 10:20:00 AM EST, REC Powder, [facility], Partial fill upon patient request if the prescription is for a schedule II opioid drug., 2 Gm By Mouth 2 times a day,PRN:as needed for constipation,Instr:Mix with 8oz of water or juice, 165, cm, 07/24/2409:42:00 EST, Height Start Date: 07/31/23 Status: Ordered Quantity: 350.0 Unit: g Repeat number: 2 betamethasone-clotrimazole 0.05%-1% topical cream See Instructions, 1 application Topically 2 times a day left inguinal area, # 15 Gm, 0 Refills, Maintenance, 10/17/23 1:43:00 PM EDT, Cream, [facility], Partial fill upon patient request if the prescription is for a schedule II opioid drug., 1 application Topically 2 times a day leftinguinal area, 162.9, cm, 10/17/23 13:31:00 EDT, Height Start Date: 10/17/23 Status: Ordered Quantity: 15.0 Unit: g Repeat number: 1 cloNIDine 0.1 mg oral tablet 0.1 mg, 1, tablet, By Mouth, 2 times a day, BID @ 8am and 5pm, # 60 tablet, Refills 0, Maintenance,01/08/23 3:09:00 PM EDT, Partial fill upon patient request if the prescription is for a schedule II opioid drug. Start Date: 01/08/23 Status: Ordered Quantity: 60.0 Unit: tablet Repeat number: 1 clozapine 100 mg oral tablet 1 tablet = 100 mg, By Mouth, Daily, qhs, 0 Refills, Maintenance, 02/26/24 12:41:00 PM EDT, Partial fill upon patient request if the prescription is for a schedule II opioid drug. Start Date: 02/26/24 Status: Ordered Repeat number: 1 clozapine 25 mg oral tablet 1 tablet = 25 mg, By Mouth, Daily, at 5pm, 0 Refills, Maintenance, 02/26/24 12:43:00 PM EDT, Partialfill upon patient request if the prescription is for a schedule II opioid drug. Start Date: 02/26/24 Status: Ordered Repeat number: 1 Clozaril 50 mg oral tablet 1.5 tablet = 75 mg, By Mouth, Daily, QAM, 0 Refills, Maintenance, 01/08/23 3:06:00 PM EDT, Partial fill upon patient request if the prescription is for a schedule II opioid drug. Start Date: 01/08/23 Status: Ordered Repeat number: 1 Depakote Sprinkles 125 mg oral enteric coated capsule 1 capsule = 125 mg, By Mouth, Daily, QD @ 12pm, # 90 capsule, 0 Refills, Maintenance, 01/08/23 3:08:00 PM EDT, EC Capsule, Partial fill upon patient request if the prescription is for a schedule II opioid drug. Start Date: 01/08/23 Status: Ordered Quantity: 90.0 Unit: capsule Repeat number: 1 Diflucan 150 mg oral tablet 1 tablet = 150 mg, By Mouth, Once, Take one tablet today. If no resolution of symptoms take second tablet in 3 days, # 2 tablet, 0 Refills, Soft Stop, 05/12/24 5:20:00 PM EST, Tablet, [facility], Partial fill upon patient request if the prescription is for a schedule II opioid drug., 162.9, cm, 05/04/24 8:57:00 EST, Height Start Date: 05/12/24 Status: Ordered Quantity: 2.0 Unit: tablet Repeat number: 1 hydrOXYzine hydrochloride 25 mg oral tablet 1 tablet = 25 mg, By Mouth, Daily, PRN for anxiety, PRN, # 40 tablet, 0 Refills, Maintenance, 01/08/23 3:17:00 PM EDT, Tablet, Partial fill upon patient request if the prescription is for a schedule IIopioid drug. Start Date: 01/08/23 Status: Ordered Quantity: 40.0 Unit: tablet Repeat number: 1 Isibloom 0.15 mg-0.03 mg oral tablet 1 tablet, By Mouth, Daily, # 84 tablet, 3 Refills, Maintenance, 09/12/23 4:22:00 PM EDT, [facility], 0, TAKE 1 TABLET BY MOUTH DAILY., 162.9, cm, 09/04/23 9:33:00 EDT, Height Start Date: 09/12/23 Status: Ordered Quantity: 84.0 Unit: tablet Repeat number: 1 loratadine 10 mg oral tablet 1, tablet, By Mouth, Daily in AM, # 28 tablet, Refills 5, Tot. Refills 5, Maintenance, 12/30/23 10:26:00 AM EDT, Route to Pharmacy Electronically, [facility], 162.9, cm, 12/10/23 9:27:00 EDT, Height Start Date: 12/30/23 Status: Ordered Quantity: 28.0 Unit: tablet Repeat number: 6 melatonin 3 mg oral tablet 1 tablet = 3 mg, By Mouth, Daily at bedtime, QHS, # 30 tablet, 0 Refills, Maintenance, 01/08/23 3:16:00 PM EDT, Partial fill upon patient request if the prescription is for a schedule II opioid drug. Start Date: 01/08/23 Status: Ordered Quantity: 30.0 Unit: tablet Repeat number: 1 metFORMIN 500 mg oral tablet 1 tablet, By Mouth, 2 times a day with meals, AT 8AM AND 6PM., # 56 tablet, 5 Refills, Maintenance,03/19/24 2:11:00 PM EDT, [facility], 162.9, cm, 02/26/24 12:47:00 EDT, Height Start Date: 03/19/24 Status: Ordered Quantity: 56.0 Unit: tablet Repeat number: 1 prazosin 2 mg oral capsule 1 capsule = 2 mg, By Mouth, Daily, QHS, # 90 capsule, 0 Refills, Maintenance, 01/08/23 3:15:00 PM EDT, Capsule, Partial fill upon patient request if the prescription is for a schedule II opioid drug. Start Date: 01/08/23 Status: Ordered Quantity: 90.0 Unit: capsule Repeat number: 1 Reguloid 400 mg oral capsule 3 capsule, By Mouth, Daily at bedtime, TAKE WITH ATLEAST 8 OUNCES OF WATER., # 84 capsule, 0 Refills, Maintenance, 11/29/23 1:05:00 PM EDT, [facility], 162.9, cm, 10/17/23 13:31:00 EDT, Height Start Date: 11/29/23 Status: Ordered Quantity: 84.0 Unit: capsule Repeat number: 1 Senna 8.6 mg oral tablet 17.2 mg, 2, tablet, By Mouth, Daily at bedtime, # 180 tablet, Refills 3, Tot. Refills 3, Maintenance, 03/22/24 10:44:00 AM EDT, Route to Pharmacy Electronically, [facility], Partial fill upon patient request if the prescription is for a schedule II opioid drug., 162.9, cm, 02/26/24 12:47:00 EDT, Height Start Date: 03/22/24 Status: Ordered Quantity: 180.0 Unit: tablet Repeat number: 4 Problem List Condition Confirmation Course Effective Dates Status H ealth Status Informant ADHD Confirmed Active Anxiety Confirmed Active Nightmares Confirmed Active Hemorrhoids Confirmed Active Lactose intolerance Confirmed Active Bipolar I disorder, most recent episode mixed Confirmed Active Mood disorder NOS Confirmed Active Schizoaffective disorder Confirmed Active Severe obesity (BMI 35.0-39.9) with comorbidity Confirmed Active Urinary tract infection Confirmed Active Vaginitis Confirmed Active Social History Social History Type Response Smoking Status Never smoker entered on: 02/21/15 Sex Sex Representation Female (finding) Patient Care team information Care Team Personnel Name: Adalgisa Berry MD Position: [facility] Physician - Primary Care Member Role: PCP Address: [address] [place] [address] [place], [place] [address] Telecom: Name: Marry Grier [place] Position: [facility] Office Staff Member Role: Primary Care Nurse Care Team Related Persons Name: MOLINA WHEELER Name: JOY FLORES Name: NEIL FLORES Insurance Providers Guarantor name: [employer] Health Plan Information #: 1 Payer: [employer] [place] Member Number: NA Policy Number: NA Group Number: NA
[2024-06-23 11:06] LABS: Basophils Percent Auto 0.3 % (0-2); Hematocrit 33.1 % (37.0-47.0); Hemoglobin 11.7 g/dl (12.0-16.0); Imm Gran Abs Auto 0.02 X10*3/uL (0.00-0.03); Imm Gran Pct Auto 0.3 % (0.0-0.4); Lymphocytes Absolute Auto 2.7 X10*3/uL (1.2-4.9); Lymphocytes Percent Auto 42.1 % (20-40); Mean Corpuscular HGB Conc 35.3 g/dl (31.0-35.0); Mean Corpuscular Hemoglobin 28.1 pg (27.0-33.0); Mean Corpuscular Volume 79.6 fL (80.0-98.0); Mean Platelet Volume 11.3 fL (9.4-12.3); Monocytes Absolute Auto 0.4 X10*3/uL (0.1-1.2); Monocytes Percent Auto 6.2 % (2-11); Neutrophils Absolute Auto 3.3 x10*3/uL (2.0-8.3); Neutrophils Percent Auto 51.1 % (45-73); Platelet Count 327 X10*3/uL (160-400); Red Blood Count 4.16 X10*6/uL (4.20-5.50); Red Cell Distribution Width 13.4 % (11.0-16.0); White Blood Count 6.4 X10*3/uL (4.8-10.8)
== END 2024-06-23 09:42 | disposition home or self-care (01) ==
LOC: HO.LAB 09:41
PROVIDERS: PCP Psychiatry & Neurology Psychiatry; Visit Provider Psychiatry & Neurology Psychiatry
DX: Z79.899 Other long term (current) drug therapy (principal)
CPT/HCPCS: 36415; 85025

== ENCOUNTER 2024-07-23 09:42 | Outpatient (REF) | payer OTHER, SELFPAY ==
[2024-07-23 10:10] LABS: MANUAL DIFF FLAG NO
[2024-07-23 10:32] LABS: Basophils Percent Auto 0.2 % (0-2); Hematocrit 34.6 % (37.0-47.0); Hemoglobin 11.7 g/dl (12.0-16.0); Imm Gran Abs Auto 0.01 X10*3/uL (0.00-0.03); Imm Gran Pct Auto 0.2 % (0.0-0.4); Lymphocytes Absolute Auto 2.2 X10*3/uL (1.2-4.9); Lymphocytes Percent Auto 40.1 % (20-40); Mean Corpuscular HGB Conc 33.8 g/dl (31.0-35.0); Mean Corpuscular Hemoglobin 28.3 pg (27.0-33.0); Mean Corpuscular Volume 83.8 fL (80.0-98.0); Mean Platelet Volume 10.8 fL (9.4-12.3); Monocytes Absolute Auto 0.4 X10*3/uL (0.1-1.2); Monocytes Percent Auto 6.5 % (2-11); Neutrophils Absolute Auto 2.9 x10*3/uL (2.0-8.3); Platelet Count 306 X10*3/uL (160-400); Red Blood Count 4.13 X10*6/uL (4.20-5.50); Red Cell Distribution Width 13.2 % (11.0-16.0); White Blood Count 5.5 X10*3/uL (4.8-10.8)
[2024-07-23 11:02] LABS: Valproate 20.7 mcg/mL (50.0-100.0)
[2024-07-27 05:44] LABS: Clozapine (Clozaril) 514 mcg/L; Norclozapine 131 mcg/L (25-400)
== END 2024-07-23 09:43 | disposition home or self-care (01) ==
LOC: HO.LABR 09:42
PROVIDERS: Visit Provider Psychiatry & Neurology Psychiatry
DX: Z79.899 Other long term (current) drug therapy (principal)
CPT/HCPCS: 36415; 80159; 80164; 85025